=== PATIENT | female | born 1950 | race Caucasian/White ===

== ENCOUNTER → 2020-09-09 | Outpatient (CLI) | payer MEDICARE ==
--- NOTE | 2020-09-09 16:19 | US ---
EXAMINATION TYPE: US kidneys/renal and bladder DATE OF EXAM: 09/09/2020 COMPARISON: NONE CLINICAL HISTORY: 70-year-old female R31.9 hematuria. Microscopic hematuria TECHNIQUE: Multiple sonographic images of the kidneys and bladder are obtained. FINDINGS: EXAM MEASUREMENTS: Right Kidney: 9.8 x 4.9 x 5.2 cm Left Kidney: 10.0 x 4.9 x 5.2 cm Right Kidney: no hydronephrosis or masses seen Left Kidney: no hydronephrosis or masses seen Bladder: wnl Bilateral Jets seen: yes IMPRESSION: No hydronephrosis.
== END | disposition home or self-care (01) ==
LOC: RADUSWWP 14:35
PROVIDERS: ATTEND Urology
DX: R31.9 Hematuria, unspecified (principal); Z88.0 Allergy status to penicillin
CPT/HCPCS: 76770